=== PATIENT | female | born 1955 | race Caucasian/White ===

== ENCOUNTER 2019-12-24 19:25 | Inpatient (IN) | payer SELFPAY ==
[~2019-12-24] VITALS: Ht 165.1 cm; Wt 68.9 kg
[2019-12-24 19:55] LABS: BASOPHILS ABSOLUTE AUTO 0.09 K/mm3 (0.00-0.23); BASOPHILS PERCENT AUTO 1 % (0-2); EOSINOPHILS PERCENT AUTO 2 % (0-6); Hematocrit 38.7 % (33.0-51.0); Hemoglobin 12.7 g/dL (11.5-16.0); IMMATURE GRAN ABSOLUTE AUTO 0.02 K/mm3 (0.00-0.10); IMMATURE GRAN PERCENT AUTO 0 % (0-1); LYMPHOCYTES ABSOLUTE AUTO 4.08 K/mm3 (0.84-5.20); LYMPHOCYTES PERCENT AUTO 43 % (21-46); MONOCYTES ABSOLUTE AUTO 0.39 K/mm3 (0.16-1.47); MONOCYTES PERCENT AUTO 4 % (4-13); Mean Corpuscular HGB 30.5 pg (26.0-34.0); Mean Corpuscular HGB Conc 32.8 g/dL (31.5-36.5); Mean Corpuscular Volume 93 fL (80-100); Mean Platelet Volume 11.3 fL (9.1-12.4); NEUTROPHILS ABSOLUTE AUTO 4.76 K/mm3 (1.96-9.15); NEUTROPHILS PERCENT AUTO 50 % (41-73); Platelet Count 333 K/mm3 (150-400); RDW Coefficient Variation 12.4 % (11.7-14.2); RDW Standard Deviation 42.7 fL (35.1-46.3); Red Blood Cell Count 4.16 M/mm3 (3.80-5.20); White Blood Cell Count 9.54 K/mm3 (4.00-11.30)
[2019-12-24 20:17] LABS: Alanine Aminotransfer (ALT/SGP 29 U/L (12-78); Albumin, Blood 3.8 g/dL (3.4-5.0); Albumin/Globulin Ratio 0.9 (0.8-1.8); Alk Phos 116 U/L (50-136); Anion Gap 9 mmol/L (6-16); Aspartate Aminotrans (AST/SGOT 30 U/L (12-37); Bilirubin, Total 0.5 mg/dL (0.1-1.0); Blood Urea Nitrogen 13 mg/dL (8-24); CO2, Blood 23 mmol/L (21-32); Calcium, Blood 8.7 mg/dL (8.5-10.1); Chloride, Blood 109 mmol/L (98-108); Creatinine, Blood 1.18 mg/dL (0.40-1.00); Globulin, Blood 4.1 g/dL (2.2-4.0); Glomerular Filtration Rate 49 (60-); Glucose, Blood 116 mg/dL (70-99); Potassium, Blood 3.4 mmol/L (3.5-5.5); Sodium, Blood 141 mmol/L (136-145); Total Protein, Blood 7.9 g/dL (6.4-8.2); Troponin I <0.015 ng/mL (0.000-0.040)
[2019-12-24 23:23] LABS: International Normalized Ratio 0.96; Prothrombin Time Results 10.3 Sec (9.7-11.5)
--- NOTE | 2019-12-25 00:10 | NUR ---
ADMIT NOTE: ADMIT 64 YEAR OLD FEMALE TO ICU 14, PCU STATUS, TO HOSPITALIST DR REST[facility], PER WHEELCHAIR VIA ER. GAIT STEADY TO BED. MONITOR PLACED SHOWING SINUS TACH WITH FREQ PCD'S L EYAL SOUNDS CLEAR/COARSE UPPER LOBES WITH CRACKLES IN THE BASES, RESPIRATIONS REGULAR AND EASY AT REST BECOMES SOB WITH ANY ACTIVITY SPO2 100% ON ROOM AIR. ABDOMEN SOFT WITH BOWEL SOUNDS FOUR QUADS. GAIT STEADY WITH STANDBY ASSIST TO TOILET VOIDS CLEAR URINE.SKIN CLEAR DRY INTACT. NO EDEMA NOTED . CONTINUE TO MONITOR AND REPORT CHANGE IN PATIENT CONDITION. BLOOD CONSENT/REFUSAL COMPLETED ALSO RELEASE OF MEDICAL INFORMATION
[2019-12-25 04:31] LABS: Hematocrit 38.7 % (33.0-51.0); Hemoglobin 12.1 g/dL (11.5-16.0); Mean Corpuscular HGB 29.7 pg (26.0-34.0); Mean Corpuscular HGB Conc 31.3 g/dL (31.5-36.5); Mean Corpuscular Volume 95 fL (80-100); Mean Platelet Volume 11.2 fL (9.1-12.4); Platelet Count 274 K/mm3 (150-400); RDW Coefficient Variation 12.4 % (11.7-14.2); RDW Standard Deviation 43.2 fL (35.1-46.3); Red Blood Cell Count 4.07 M/mm3 (3.80-5.20); White Blood Cell Count 10.48 K/mm3 (4.00-11.30)
[2019-12-25 04:53] LABS: Albumin, Blood 3.6 g/dL (3.4-5.0); Albumin/Globulin Ratio 0.9 (0.8-1.8); Bilirubin, Total 0.9 mg/dL (0.1-1.0); Calcium, Blood 8.8 mg/dL (8.5-10.1); Potassium, Blood 3.6 mmol/L (3.5-5.5); Total Protein, Blood 7.6 g/dL (6.4-8.2)
[2019-12-25 05:03] LABS: CPK Creatine Kinase 49 U/L (26-193); Troponin I <0.015 ng/mL (0.000-0.040)
--- NOTE | 2019-12-25 06:44 | NUR ---
SHIFT SUMMARY: RESTS QUIETLY WHEN UNDISTURBED MONITOR INTACT SHOWING SINUS RHYTHM HEART RATE 70'S LUNG SOUNDS CLEAR COARSE UPPER LOBES WITH DECREASED SOUNDS IN THE BASES. SPO2 99-100'S ON ROOM AIR. ABDOMEN SOFT WITH BOWEL SOUNDS FOUR QUADS.VOIDS CLEAR URINE PER TOILET GAIT STEADY. CONTINUE TO MONITOR AND REPORT CHANGE IN PATIENT CONDITION.
--- NOTE | 2019-12-25 08:00 | NUR ---
CARE ASSUMED REPORT RECEIVED, CARE ASSUMED AT 0700. PT ALERT, ORIENTED. DENIES CHEST PAIN OR SHORTNESS OF BREATH. REPORTS SHE FEELS MUCH BETTER SINCE ADMISSION. VITALS STABLE. PT UP AND DOWN TO BATHROOM IN ROOM FREQUENTLY, STABLE ON FEET AND MANAGES CORDS/LINES WELL. HEPARIN GTT INFUSING. CLARIFIED WITH DR. ROCHA PLAN FOR TODAY. ORDER FOR NPO AND CARDIAC CONSULT. PT UPDATED AND AGREABLE TO PLAN OF CARE. ALSO PER SAP SENIOR DEVELOPER RN, PT WANTS NO LIFE SUPPORT, INCLUDING A VENTILATOR. SPOKE WITH PATIENT REGARDING CODE STATUS, AND PT AGREES THAT FOR A SHORT PERIOD IT WOULD BE OK TO BE ON A VENTILATOR, BUT NOT CHCF. ASKED PATIENT IF HER FAMILY IS AWARE OF HER NEEDS, AND PT SAYS YES. PT AGREEABLE TO WRITTEN INFORMATION REGARDING ADVANCED DIRECTIVE WELL EDUCATION FOR NEW DIAGNOSIS OF CHF.
--- NOTE | 2019-12-25 08:25 | NUR ---
CARDIOLOGY CONSULT DR. ONEIL TO BEDSIDE FOR ASSESSMENT. PLAN FOR ECHO AND CARDIAC STRESS TEST.
--- NOTE | 2019-12-25 09:57 | NUR ---
Echocardiogram using 0.50ml of Definity contrast performed.
--- NOTE | 2019-12-25 11:55 | NUR ---
CARDIAC CATH PER DR. ONEIL, PT NEEDS LEFT AND RIGHT CARDIAC CATH AND HE WILL BE BY TO DISCUSS WITH PATIENT WHEN HE HAS TIME. ORDER TO STOP HEPARIN GTT, CONTINUE WITH NPO STATUS OTHER THAN ORDERED MEDS. CONFIRMED OK TO GIVE METOPROLOL, PLAVIX AND LASIX PER ORDERS.
[2019-12-25 13:43] LABS: CPK Creatine Kinase 57 U/L (26-193); Troponin I <0.015 ng/mL (0.000-0.040)
--- NOTE | 2019-12-25 18:32 | NUR ---
Per admit trigger, I met with Mrs. Rabago who was alone in room. I was tasked to offer information and education regarding advanced care planning. She was a interested in completing an Advanced Directive but wanted to do it with family. She is active in the [employer] [place] community and feels spiritual supported by friends and family. I offered to help with ACP if needed. She tells me that she has new dx of CHF and is worried. I recommended palliative care consult to RN. I will remain available.
--- NOTE | 2019-12-25 19:00 | NUR ---
ASSUMED CARE NOTE: ASSUMED CARE OF PT @ 1900, RECEVIED REPORT FROM AMARA MORGAN. PT IS ALERT AND ORIENTEDX4. PT ON RA WITH SPO2 ABOVE 90%, PT DENIES ANY SOB/PAIN AT THIS TIME. PT IS IN SINUS RHYTHM WITH PVC'S, HR IN THE 70'S, PT DENIES ANY CP. ACTIVE BOWEL TONES HEARD IN ALL FOUR QUADRANTS. VERIFIED HEPARIN ORDER/DRIP WITH AMARA MORGAN. WILL CONTINUE TO MONITOR PT T/O SHIFT.
--- NOTE | 2019-12-25 19:04 | NUR ---
SUMMARY VITALS STABLE THROUGOUT SHIFT. PT HAS DENIED CHEST PAIN, SOB. UP IN ROOM INDEPENDENTLY. NOTIFIED THIS AFTERNOON BY DR. ONEIL THAT PT TO GO TO [facility] TOMORROW MORNING AT 0800. PT OK TO EAT, NPO AFTER MIDNIGHT. HEPARIN RESTARTED, STOP AT MIDNIGHT. ORDERS PLACED. PT'S BIGGEST CONCERN IS EDUCATION REGARDING HER DIAGNOSIS. PT HAS BEEN PROVIDED WITH VERBAL AND WRITTEN INFORMATION THROUGHOUT THE DAY AND EXPRESSES GRATITUDE. PT HAS CONCERNS WITH NEW DIAGNOSIS AND BEING HER WITH DEMENTIA'S PRIMARY SUPPORT PERSON. PALLIATIVE CARE AND INSULATION MANAGER CONSULTS PLACED. BEDSIDE REPORT GIVEN TO EDDIE CARL.
--- NOTE | 2019-12-26 01:00 | NUR ---
SHARON MONTOYA'osmar @ 0000, NOTIFIED PHARMACY
[2019-12-26 04:14] LABS: BASOPHILS ABSOLUTE AUTO 0.04 K/mm3 (0.00-0.23); BASOPHILS PERCENT AUTO 1 % (0-2); EOSINOPHILS ABSOLUTE AUTO 0.17 K/mm3 (0.00-0.68); EOSINOPHILS PERCENT AUTO 2 % (0-6); Hematocrit 35.8 % (33.0-51.0); Hemoglobin 11.8 g/dL (11.5-16.0); IMMATURE GRAN ABSOLUTE AUTO 0.02 K/mm3 (0.00-0.10); IMMATURE GRAN PERCENT AUTO 0 % (0-1); LYMPHOCYTES ABSOLUTE AUTO 1.85 K/mm3 (0.84-5.20); LYMPHOCYTES PERCENT AUTO 26 % (21-46); MONOCYTES ABSOLUTE AUTO 0.42 K/mm3 (0.16-1.47); MONOCYTES PERCENT AUTO 6 % (4-13); Mean Corpuscular HGB 30.4 pg (26.0-34.0); Mean Platelet Volume 11.1 fL (9.1-12.4); NEUTROPHILS ABSOLUTE AUTO 4.71 K/mm3 (1.96-9.15); NEUTROPHILS PERCENT AUTO 65 % (41-73); Platelet Count 277 K/mm3 (150-400); RDW Coefficient Variation 12.6 % (11.7-14.2); RDW Standard Deviation 42.5 fL (35.1-46.3); Red Blood Cell Count 3.88 M/mm3 (3.80-5.20); White Blood Cell Count 7.21 K/mm3 (4.00-11.30)
[2019-12-26 04:15] LABS: Mean Corpuscular Volume 92 fL (80-100)
[2019-12-26 04:29] LABS: Bun/Creatinine Ratio 19.1 (12.0-20.0); Calcium, Blood 8.5 mg/dL (8.5-10.1); Creatinine, Blood 1.41 mg/dL (0.40-1.00); Potassium, Blood 3.6 mmol/L (3.5-5.5)
--- NOTE | 2019-12-26 06:18 | NUR ---
SHIFT SUMMARY: PT REMAINS ALERT AND ORIENTEDX4, CONTINUES TO BE ON RA, SPO2 ABOVE 90%. PT HAS BEEN SINUS RHYTHM WITH PVC'S , HR BETWEEN 60-70 BPM. PT WAS IN AN ACCELERATED JUCTIONAL RHYTHM FOR A FEW MOMENTS THIS SHIFT, SEE CHART. PT CONTINUED TO DENY CHEST PAIN DURING SHIFT. PT VITALS STABLE. HEPARIN TURNED OFF AT MIDNIGHT, PT REMAINED NPO. WILL CONTINUE TO MONITOR PT UNTIL REPORT IS GIVEN TO NEXT SHIFT.
--- NOTE | 2019-12-26 13:59 | NUR ---
ICU DAYSHIFT SUMMARY (PCU STATUS PT) PATIENT REMAINED ALERT AND ORIETED X4 T/O SHIFT. INDEPENDENT IN ROOM. NO BLOOD PRESSURES TO LEFT ARM DUE TO LYMPHECTOMY. POWER GLIDE IN RIGHT UPPER ARM WNL. PATIENT HAS STRONG STEADY GAIT. ANGIO GRAM TODAY FROM APPROX [id number] - NO STENTS. EF 20% - TITRATING LASIXS AND CARDIAC MEDICATIONS. NO ACUTE DISTRESS NOTED AND VSS. HR NSR IN THE 70-80S AND PATIENT ON ROOM AIR. CALL LIGHT W/I REACH. AMBULATING PATIENT TO PCU ROOM 7 - REPORTED TO CHIEF EXECUTIVE.
--- NOTE | 2019-12-26 14:46 | NUR ---
PT ARRIVED FROM ICU AT 1415 AND WAS AOX4 AND COOPERATIVE OF CARE. PT HAS BOARD IN PLACE TO KEEP WRIST FROM BENDING ON RIGHT WRIST. NO SWELLING OR BLEEDING NOTED FOR INSERTION SITE OF R WRIST. PT INDEPENDENT IN ROOM, WILL CONTINUE TO MONITOR.
--- NOTE | 2019-12-26 16:48 | NUR ---
PT IS AOX4 AND COOPERATIVE OF CARE NO DISTRESS NOTED AT THIS TIME. PT INDEPENDENT IN ROOM. PT CALLS APPROPRITAELY, WILL CONTINUE TO MONITOR.
[2019-12-27 04:23] LABS: Albumin, Blood 3.5 g/dL (3.4-5.0); Anion Gap 9 mmol/L (6-16); Blood Urea Nitrogen 35 mg/dL (8-24); CO2, Blood 27 mmol/L (21-32); Calcium, Blood 8.7 mg/dL (8.5-10.1); Chloride, Blood 103 mmol/L (98-108); Creatinine, Blood 1.13 mg/dL (0.40-1.00); Glomerular Filtration Rate 52 (60-); Glucose, Blood 107 mg/dL (70-99); Phosphorus, Blood 4.9 mg/dL (2.5-4.9); Potassium, Blood 3.4 mmol/L (3.5-5.5); Sodium, Blood 139 mmol/L (136-145)
--- NOTE | 2019-12-27 05:22 | NUR ---
SHIFT SUMMARY PT SLEEPING COMFORTABLY IN ROOM AT THIS TIME. NO ACUTE CHANGES IN STATSU T/O NIGHT. PT SLEPT WELL AND DENIED NEEDS. DENIED ANY CP OR SOB. PT HAS BEEN INDEPENDENT IN ROOM T/O NIGHT. RESP EVEN UNLBAORED ON RA W/ SATS >92%. PT HAS REMAINED NSR ON TELE T/O NIGHT. ANGIO SITE ON R RADIAL IS WNL, AND ARMBOARD IN PLACE, NO HEMATOMAS NOTED. PT DENIED OTHER NEEDS. CALL LIGHT IN REACH. PT REPORTS DOES NOT WANT TO BE WOKEN FOR BEDSIDE REPORT.
[2019-12-27] MEDS ORDERED: ASPI81CH PO (12:15)
[2019-12-27] MEDS ORDERED: ATOR20 PO (12:15)
[2019-12-27] MEDS ORDERED: FURO40 PO (12:16)
[2019-12-27] MEDS ORDERED: LISI5 PO (12:17)
[2019-12-27] MEDS ORDERED: METO50ER PO (12:18)
--- NOTE | 2019-12-27 14:50 | NUR ---
DISCHARGE SUMMARY PT REMAINED AAOX4 THROUGHOUT SHIFT. VSS; SR 70-80S ON TELE MONITOR. PT DENIED ANY C/O CHEST PAIN/PRESSURE OR SOB. PT S/P ANGIO; RIGHT RADIAL SITE WNL; SMALL ECCHYMOSIS NOTED AROUND SITE, WHICH WAS PRESENT UPON SHIFT CHANGE. DISCHARGE EDUCATION WAS COMPLETED W/ PT, PT'S , & PT'S GRANDCHILDREN. DISCUSSED MED REC, FOLLOW UP INSTRUCTIONS, ACTIVITY & DIET RESTRICTIONS REGARDING POST ANGIO & CHF. EMPHASIZED IMPORTANCE OF MONITORING RADIAL SITE FOR S/S OF COMPLICATIONS; PT ABLE TO TEACH BACK SOME S/S INCLUDING INFECTION & BLEEDING. ALSO EMPHASIZED IMPORTANCE OF CHF MANAGEMENT, W/ ADHERENCE TO MEDS, DIET, & WEIGHT MONITORING. PT VERBALIZED UNDERSTANDING AT THIS TIME. HANDOUTS PROVIDED ON RADIAL ANGIO CARE, CHF, & MED SIDE EFFECTS. PT TO PICKUP NEW PRESCRIPTIONS AT HER HOME PHARMACY. RIGHT UPPER ARM POWERGLIDE REMOVED. TELE REMOVED. ALL PAPERWORK & BELONGINGS GIVEN TO PT. PT DISCHARED HOME W/ ; TRANSPORTED OFF UNIT VIA WHEELCHAIR IN STABLE CONDITION.
== END 2019-12-27 13:46 | disposition home or self-care (01) | DRG 286 ==
LOC: ER 19:25 → ICUW 22:02 → PCU 12-26 14:10
PROVIDERS: Family Medicine; Internal Medicine; Physician Assistant; ADMIT Internal Medicine
PROC: 4A023N7 Measurement of Cardiac Sampling and Pressure, Left Heart, Percutaneous Approach (ICD-10-PCS; principal; 2019-12-26)
PROC: B2111ZZ Fluoroscopy of Multiple Coronary Arteries using Low Osmolar Contrast (ICD-10-PCS; 2019-12-26)
DX: I51.81 Takotsubo syndrome (principal); I50.21 Acute systolic (congestive) heart failure; N17.9 Acute kidney failure, unspecified; I25.119 Atherosclerotic heart disease of native coronary artery with unspecified angina pectoris; E87.6 Hypokalemia; D64.9 Anemia, unspecified; N18.9 Chronic kidney disease, unspecified; I44.7 Left bundle-branch block, unspecified; I08.1 Rheumatic disorders of both mitral and tricuspid valves; Z85.3 Personal history of malignant neoplasm of breast
CPT/HCPCS: 36415; 71046; 76937; 80048; 80053; 80069; 82550; 83880; 84484; 85025; 85027; 85049; 85379; 85610; 85730; 93005; 93010; 93458; 99152; 99153; 99285-25; A9270-GY; C1751; C1769; C1894; C8929; J1644; J1940; J2250; J2405; J3010; J3480; J7030; J7050; Q9957; Q9967

== ENCOUNTER 2022-09-24 06:17 | Emergency (ER) | payer SELFPAY ==
[~2022-09-24] VITALS: Ht 162.6 cm; Wt 63.5 kg
[~2022-09-24 06:17] MED LIST: ASPI81CH PO; ATOR20 PO; FURO40 PO; LISI5 PO; METO50ER PO
[2022-09-24 07:14] LABS: BASOPHILS ABSOLUTE AUTO 0.05 K/mm3 (0.00-0.23); BASOPHILS PERCENT AUTO 1 % (0-2); EOSINOPHILS ABSOLUTE AUTO 0.11 K/mm3 (0.00-0.68); EOSINOPHILS PERCENT AUTO 2 % (0-6); Hematocrit 34.9 % (33.0-51.0); Hemoglobin 11.8 g/dL (11.5-16.0); IMMATURE GRAN ABSOLUTE AUTO 0.02 K/mm3 (0.00-0.10); IMMATURE GRAN PERCENT AUTO 0 % (0-1); LYMPHOCYTES ABSOLUTE AUTO 2.13 K/mm3 (0.84-5.20); LYMPHOCYTES PERCENT AUTO 30 % (21-46); MONOCYTES ABSOLUTE AUTO 0.38 K/mm3 (0.16-1.47); MONOCYTES PERCENT AUTO 5 % (4-13); Mean Corpuscular HGB 30.3 pg (26.0-34.0); Mean Corpuscular HGB Conc 33.8 g/dL (31.5-36.5); Mean Corpuscular Volume 90 fL (80-100); NEUTROPHILS ABSOLUTE AUTO 4.36 K/mm3 (1.96-9.15); NEUTROPHILS PERCENT AUTO 62 % (41-73); Platelet Count 336 K/mm3 (150-400); RDW Coefficient Variation 14.3 % (11.7-14.2); RDW Standard Deviation 46.5 fL (35.1-46.3); White Blood Cell Count 7.05 K/mm3 (4.00-11.30)
[2022-09-24 07:53] LABS: Albumin, Blood 3.5 g/dL (3.4-5.0); Albumin/Globulin Ratio 0.9 (0.8-1.8); Bilirubin, Total 0.8 mg/dL (0.1-1.0); Bun/Creatinine Ratio 15.2 (12.0-20.0); Creatinine, Blood 1.05 mg/dL (0.40-1.00); Globulin, Blood 3.9 g/dL (2.2-4.0); Potassium, Blood 3.6 mmol/L (3.5-5.5); Total Protein, Blood 7.4 g/dL (6.4-8.2)
[2022-09-24 10:00] LABS: Influenza A, PCR NEGATIVE (NEGATIVE); Influenza B, PCR NEGATIVE (NEGATIVE); Resp Syncytial Virus, PCR NEGATIVE (NEGATIVE); SARS-Cov-2 (COVID-19) PCR, MMC NEGATIVE (NEGATIVE)
[2022-09-24] MEDS ORDERED: LASIX20 M2 PO (10:29)
[2022-09-24] MEDS ORDERED: POTCHL20ER PO (10:29)
[2022-09-24] MEDS ORDERED: METO50ER PO (10:29)
[2022-09-24] MEDS ORDERED: Prinivil10 MG PO (10:29)
== END 2022-09-24 10:51 | disposition home or self-care (01) ==
LOC: ER 06:17
PROVIDERS: Emergency Medicine
DX: I50.9 Heart failure, unspecified (principal); Z87.891 Personal history of nicotine dependence; Z20.822 Contact with and (suspected) exposure to COVID-19
CPT/HCPCS: 0241U; 36415; 71046; 80053; 83880; 84484; 85025; J1940

== ENCOUNTER 2023-04-20 11:05 | Inpatient (IN) | payer MEDICAID ==
[~2023-04-20] VITALS: Ht 165.1 cm; Wt 66.1 kg
[~2023-04-20 11:05] MED LIST changes: +LASIX20 M2 PO; +POTCHL20ER PO; +Prinivil10 MG PO
[2023-04-20 11:53] LABS: BASOPHILS ABSOLUTE AUTO 0.05 K/mm3 (0.00-0.23); BASOPHILS PERCENT AUTO 1 % (0-2); EOSINOPHILS ABSOLUTE AUTO 0.11 K/mm3 (0.00-0.68); EOSINOPHILS PERCENT AUTO 1 % (0-6); Hematocrit 35.9 % (33.0-51.0); Hemoglobin 12.2 g/dL (11.5-16.0); IMMATURE GRAN ABSOLUTE AUTO 0.03 K/mm3 (0.00-0.10); IMMATURE GRAN PERCENT AUTO 0 % (0-1); LYMPHOCYTES ABSOLUTE AUTO 2.26 K/mm3 (0.84-5.20); LYMPHOCYTES PERCENT AUTO 23 % (21-46); MONOCYTES ABSOLUTE AUTO 0.39 K/mm3 (0.16-1.47); MONOCYTES PERCENT AUTO 4 % (4-13); Mean Corpuscular HGB 30.5 pg (26.0-34.0); Mean Corpuscular Volume 90 fL (80-100); NEUTROPHILS ABSOLUTE AUTO 6.93 K/mm3 (1.96-9.15); NEUTROPHILS PERCENT AUTO 71 % (41-73); Platelet Count 456 K/mm3 (150-400); RDW Coefficient Variation 11.9 % (11.7-14.2); White Blood Cell Count 9.77 K/mm3 (4.00-11.30)
[2023-04-20 12:15] LABS: Albumin, Blood 3.5 g/dL (3.4-5.0); Albumin/Globulin Ratio 0.7 (0.8-1.8); Bilirubin, Total 0.4 mg/dL (0.1-1.0); Calcium, Blood 9.5 mg/dL (8.5-10.1); Creatinine, Blood 1.31 mg/dL (0.40-1.00); Globulin, Blood 4.7 g/dL (2.2-4.0); Potassium, Blood 3.1 mmol/L (3.5-5.5); Total Protein, Blood 8.2 g/dL (6.4-8.2)
[2023-04-20] MEDS ORDERED: ASPI81CH PO (16:32)
[2023-04-20] MEDS ORDERED: FURO20 PO (16:33)
[2023-04-20] MEDS ORDERED: Zestril30 MG PO (16:34)
[2023-04-20] MEDS ORDERED: METO50ER PO (16:35)
[2023-04-20] MEDS ORDERED: KLOR-CON 1010 ME1 PO (16:36)
[2023-04-20 16:40] VITALS: BP 121/63
[2023-04-20 17:45] LABS: Anti-Xa UFH, PHA Monitoring <0.10 IU/mL; International Normalized Ratio 1.01; Prothrombin Time Results 10.6 Sec (9.7-11.5)
[2023-04-20 18:00] VITALS: BP 128/72
--- NOTE | 2023-04-20 18:12 | NUR ---
SUMMARY Assumed care of PCU status patient on arrival to ICU 15 from emergency department at 1630. Admitted for elevated troponin. Noted that repeat troponin was further elevated, Dr Arora aware and provider presented to bedside to update patient that he would be consulting cardiology. Pt to remain NPO until cardiology provides additional plan of care. Heparin drip started and pt given loading dose ASA and plavix. End of shift assessment is as follows: Neuro/Vasc/Pain: A&O x 4. Answers questions, follows commands, verbalizes needs. Pleasant and cooperative with care. Reports pain to top of right foot; states the pain started 1.5 weeks ago and was accompanied with swelling so severe "I thought my skin was going to split open". Pt chooses not to bear any weight on R foot with transfers. On assessment, R foot is hot to the touch, L foot is cold. Doppler pulses are stronger on R foot than L foot. Capillary refill < 3 seconds BLE. Venous duplex pending. Resp: SpO2 90% or greater room air. Lungs clear t/o. Cardiac: SR-ST per monitor with approx 10 PVCs per minute. Hypokalemic, PO potassium given. No edema. Pt denies chest pain. GI: Pt reports intermittent nausea; states she vomited this morning. : Voids into BSC Skin: Fragile but intact Family: Pt states she lives with her . She states he has dementia but is able to do his own ADLs. States her son lives "two doors down". Pt has been updating family today.
--- NOTE | 2023-04-20 18:29 | NUR ---
IGNITION RISK Pt states she is not a smoker and denies having any ignition sources. States that she had a coil connector that she kept in her purse "for about five years for emergencies" but had the nurse in the ER dispose of it. Educated on fire prevention. Pt verbalizes understanding.
[2023-04-20 19:00] VITALS: BP 122/96
[2023-04-20 20:00] VITALS: BP 116/61
--- NOTE | 2023-04-20 20:00 | NUR ---
ASSUMED CARE OF PT AT 1900. REPORT RECEIVED AT BEDSIDE. PT PRESENTS IN BED. ALERT AND ORIENTED. PLEASANT AND COOPERATIVE WITH CARE AND ASSESSMENT. DENIES CHEST PAIN OR PRESSURE. HEPARIN DRIP RATE AND DOSE WEIGHT VERIFIED WITH OFFGOING RN. ASSESSMENT OF RIGHT LOWER EXTREMITY VERSUS LEFT CONSISTANT WITH PREVIOUS ASSESSMENT. WILL REVIEW CHART AND PLAN OF CARE FOR THIS PT.
[2023-04-20 22:00] VITALS: BP 100/58
[2023-04-21] VITALS (8 sets, daily range): BP systolic 99–136; BP diastolic 41–101
[2023-04-21 04:36] LABS: BASOPHILS ABSOLUTE AUTO 0.04 K/mm3 (0.00-0.23); BASOPHILS PERCENT AUTO 1 % (0-2); EOSINOPHILS ABSOLUTE AUTO 0.15 K/mm3 (0.00-0.68); EOSINOPHILS PERCENT AUTO 2 % (0-6); Hematocrit 30.7 % (33.0-51.0); Hemoglobin 10.4 g/dL (11.5-16.0); IMMATURE GRAN ABSOLUTE AUTO 0.02 K/mm3 (0.00-0.10); IMMATURE GRAN PERCENT AUTO 0 % (0-1); LYMPHOCYTES ABSOLUTE AUTO 2.94 K/mm3 (0.84-5.20); LYMPHOCYTES PERCENT AUTO 38 % (21-46); MONOCYTES PERCENT AUTO 8 % (4-13); Mean Corpuscular HGB 30.9 pg (26.0-34.0); Mean Corpuscular HGB Conc 33.9 g/dL (31.5-36.5); Mean Corpuscular Volume 91 fL (80-100); Mean Platelet Volume 9.9 fL (9.1-12.4); NEUTROPHILS ABSOLUTE AUTO 3.96 K/mm3 (1.96-9.15); NEUTROPHILS PERCENT AUTO 51 % (41-73); Platelet Count 375 K/mm3 (150-400); RDW Coefficient Variation 11.9 % (11.7-14.2); Red Blood Cell Count 3.37 M/mm3 (3.80-5.20); White Blood Cell Count 7.71 K/mm3 (4.00-11.30)
--- NOTE | 2023-04-21 05:13 | NUR ---
PT HAS BEEN ABLE TO REST THIS NIGHT WITHOUT COMPLAINTS OF CHEST PAIN OR PRESSURE. HAS BEEN UP TO BSC WITH STANDBY ASSIST AND TO HELP WITH LINES. PT VOIDS QUANTITY SUFFICIENT. NO COMPLAINTS VOICED BY PT. PT TO BE TRANSFERRED TO PCU ROOM 12 WHEN RN AND ROOM AVAILABLE.
--- NOTE | 2023-04-21 06:10 | NUR ---
REPORT GIVEN TO EDDIE LIMON. PT LEAVES TO ROOM PCU 12.
[2023-04-21 06:14] LABS: Alanine Aminotransfer (ALT/SGP 22 U/L (12-78); Albumin, Blood 3.1 g/dL (3.4-5.0); Albumin/Globulin Ratio 0.9 (0.8-1.8); Alk Phos 133 U/L (50-136); Anion Gap 7 mmol/L (6-16); Aspartate Aminotrans (AST/SGOT 28 U/L (12-37); Bilirubin, Total 0.3 mg/dL (0.1-1.0); Blood Urea Nitrogen 26 mg/dL (8-24); Bun/Creatinine Ratio 18.8 (12.0-20.0); CHOL/HDL RATIO 2.6; CO2, Blood 24 mmol/L (21-32); Chloride, Blood 109 mmol/L (98-108); Cholesterol 129 mg/dL (50-200); Creatinine, Blood 1.38 mg/dL (0.40-1.00); Globulin, Blood 3.6 g/dL (2.2-4.0); Glomerular Filtration Rate 42 (60-); Glucose, Blood 109 mg/dL (70-99); HDL Cholesterol 50 mg/dL (>39); LDL/HDL RATIO 1.1; Low Density Lipoprotein Chol 54 mg/dL (0-110); Sodium, Blood 140 mmol/L (136-145); Total Protein, Blood 6.7 g/dL (6.4-8.2); Triglycerides 126 mg/dL (30-160); Very Low Density Lipoprot Chol 25 mg/dL (6-32)
--- NOTE | 2023-04-21 14:49 | NUR ---
LEXISCAN 0.4 MG IV GIVEN FOR STRESS TEST ORDERED.
--- NOTE | 2023-04-21 19:22 | NUR ---
SHIFT SUMMARY ALERT, ORIENTED, COOPERATIVE. DENIES CHEST PAIN AND SHORTNESS OF BREATH THROUGHOUT SHIFT. ROOM AIR. SBA TO BSC, RIGHT FOOT IS SWOLLEN AND PAINFUL. DVT NEG BILAT LE. PATIENT DENIES INJURY. HEPARIN GTT RUNNING, TITRATED PER PHARMACY. DR ARMSTRONG CONSULTED. NPO DURING AM, WENT FOR 1ST PART OF CARDIAC STRESS TEST THIS AFTERNOON. TOLERATED WELL. TOLERATED CARDIAC DIET AND LIQUIDS DURING AFTERNOON AND EVENING. VOIDING WELL. 24 HOUR URINE COLLECTION STARTED THIS AFTERNOON. ECHO DONE, EF 25%. PLAN FOR 2ND PART OF STRESS TEST IN AM. REPORT GIVEN TO HR CLERK RN.
--- NOTE | 2023-04-21 19:56 | NUR ---
ASSUMPTION OF CARE: PATIETN WITH 1ST PART OF STRESS TEST PREFORMED PENDING SECOND IN THE AM ECHO RESULTS IN. PATIENT IS ALERT AND ORIENTED X4 PLEASANT COOPERATIVE WITH CARE. HEP Gtt INFUSING NEW BAG, PATIENT ALSO WITH TKO INFUSING WILL CONTINUE TO MONITOR. PATIENT DENIES CHEST PAIN PRESSURE OR SOB. VSS ON RA. DENIES GI/ ISSUES. NO CONCERNS FROM THIS RN WILL MAKE NPO AT 0400 INCASE OF INTERVENTIONS NEEDED. PATIENT APPLICABLE TO PLAN. TELE IN PLACE. POWERGLIDE FLUSHES WELL
[2023-04-22 03:45] VITALS: BP 102/48
--- NOTE | 2023-04-22 03:49 | NUR ---
END OF SHIFT: PATIENT EDUCATED, ON FIRE SAFETY. PATIENT VERBALIZED UNDERSTANDING. STILL DENYING CHEST PAIN PRESSURE OR SOB. NO CHANGES FROM ASSUMPTION OF CARE NO CHANGE TO RATE OF HEP GTT PATIENT WITH ONE VOID THROUGH THE NIGHT. NO CONCERNS FOR RETENTION, WILL CONTINUE TO MONITOR UNTIL SHIFT CHANGE.
[2023-04-22 04:45] LABS: BASOPHILS ABSOLUTE AUTO 0.05 K/mm3 (0.00-0.23); BASOPHILS PERCENT AUTO 1 % (0-2); EOSINOPHILS ABSOLUTE AUTO 0.13 K/mm3 (0.00-0.68); EOSINOPHILS PERCENT AUTO 2 % (0-6); Hematocrit 30.7 % (33.0-51.0); Hemoglobin 10.5 g/dL (11.5-16.0); IMMATURE GRAN ABSOLUTE AUTO 0.01 K/mm3 (0.00-0.10); IMMATURE GRAN PERCENT AUTO 0 % (0-1); LYMPHOCYTES ABSOLUTE AUTO 2.98 K/mm3 (0.84-5.20); LYMPHOCYTES PERCENT AUTO 41 % (21-46); MONOCYTES ABSOLUTE AUTO 0.47 K/mm3 (0.16-1.47); MONOCYTES PERCENT AUTO 7 % (4-13); Mean Corpuscular HGB 31.3 pg (26.0-34.0); Mean Corpuscular HGB Conc 34.2 g/dL (31.5-36.5); Mean Corpuscular Volume 91 fL (80-100); Mean Platelet Volume 10.2 fL (9.1-12.4); NEUTROPHILS ABSOLUTE AUTO 3.56 K/mm3 (1.96-9.15); NEUTROPHILS PERCENT AUTO 50 % (41-73); Platelet Count 404 K/mm3 (150-400); RDW Coefficient Variation 12.1 % (11.7-14.2); RDW Standard Deviation 40.3 fL (35.1-46.3); Red Blood Cell Count 3.36 M/mm3 (3.80-5.20)
[2023-04-22 05:14] LABS: Albumin/Globulin Ratio 0.8 (0.8-1.8); Bilirubin, Total 0.5 mg/dL (0.1-1.0); Bun/Creatinine Ratio 23.1 (12.0-20.0); Creatinine, Blood 1.34 mg/dL (0.40-1.00); Globulin, Blood 3.8 g/dL (2.2-4.0); Potassium, Blood 4.2 mmol/L (3.5-5.5); Total Protein, Blood 6.8 g/dL (6.4-8.2)
[2023-04-22 07:01] VITALS: BP 95/47
--- NOTE | 2023-04-22 10:34 | NUR ---
Patient was injected and ate breakfast. She is back from stress test now, Dr. Campos, and Dr avitia have been in again to see her and spoke with them for possible xray of R foot. at bedside. Her linen has been changed.
[2023-04-22 11:45] VITALS: BP 112/48
--- NOTE | 2023-04-22 13:30 | NUR ---
Patient remains alert and oriented and is abnle to communicate her needs. She is independent in room but still calls before getting up. Her is at bedside and has been assisting her. She has been resting since back from stress test. She currently has family and friends in room. She has denied any needs. She had imaging of here right foot. She remains on RA and sats >90%.. She tolerated luch without difficulty and ate 100%. Plan is to get her started on Eliquis.
[2023-04-22] MEDS ORDERED: POTA10T PO (15:35)
[2023-04-22] MEDS ORDERED: ATOR40TA PO (15:35)
[2023-04-22] MEDS ORDERED: ELIQUIS5 M2 PO (15:35)
--- NOTE | 2023-04-22 16:07 | NUR ---
Dr Arora by and saw patient and she is being discharged. We were able to get 30 day supply and discount cards to patient before leaving. She received written discharge instructions and reviewed meds and appt. She returned understanding of information. Pulled powerGlide and IV intact and sites WNL's. Patient was taken out in wheelchair and son took them home POV.
[2023-04-24 00:08] LABS: HEMOGLOBIN A1C 5.3 % (4.8-5.6)
[2023-04-26 08:13] LABS: METANEPHRINE, UR 61 ug/L (Undefined)
== END 2023-04-22 16:02 | disposition home or self-care (01) | DRG 281 ==
LOC: ER 11:05 → ICUE 11:06 → PCU 11:06 → ICUE 16:22 → PCU 04-21 06:11
PROVIDERS: Family Medicine; Physician Assistant; ADMIT Hospitalist
DX: I21.4 Non-ST elevation (NSTEMI) myocardial infarction (principal); I13.0 Hypertensive heart and chronic kidney disease with heart failure and stage 1 through stage 4 chronic kidney disease, or unspecified chronic kidney disease; I42.8 Other cardiomyopathies; I50.22 Chronic systolic (congestive) heart failure; I48.92 Unspecified atrial flutter; I43 Cardiomyopathy in diseases classified elsewhere; N18.9 Chronic kidney disease, unspecified; M54.2 Cervicalgia; I44.7 Left bundle-branch block, unspecified; I25.118 Atherosclerotic heart disease of native coronary artery with other forms of angina pectoris; I08.1 Rheumatic disorders of both mitral and tricuspid valves; R79.1 Abnormal coagulation profile; R74.8 Abnormal levels of other serum enzymes; E87.6 Hypokalemia; D75.839 Thrombocytosis, unspecified; Z79.82 Long term (current) use of aspirin; Z79.02 Long term (current) use of antithrombotics/antiplatelets; Z79.01 Long term (current) use of anticoagulants; Z79.811 Long term (current) use of aromatase inhibitors; Z79.899 Other long term (current) drug therapy; Z87.19 Personal history of other diseases of the digestive system; Z85.3 Personal history of malignant neoplasm of breast; Z90.12 Acquired absence of left breast and nipple; Z98.890 Other specified postprocedural states; Z92.21 Personal history of antineoplastic chemotherapy
CPT/HCPCS: 36415; 71046; 71260; 73610; 73630; 78452; 80053; 80061; 81050; 83036; 83735; 83835; 83880; 84443; 84484; 85025; 85379; 85520; 85610; 85730; 93005; 93010; 93017; 93970; 96365; 96366; 96375; 99285-25; A9270; A9500; C1751; C8929; G0378; J1644; J2785; J3475; J7030; J7050; Q9957; Q9967

== ENCOUNTER 2024-09-07 08:33 | Emergency (ER) | payer MEDICARE ==
[~2024-09-07] VITALS: Ht 162.6 cm; Wt 66.8 kg
[~2024-09-07 08:33] MED LIST changes: +ATOR40TA PO; +ELIQUIS5 M2 PO; +FURO20 PO; +KLOR-CON 1010 ME1 PO; +POTA10T PO; +Zestril30 MG PO
[2024-09-07 09:32] LABS: BASOPHILS ABSOLUTE AUTO 0.08 K/mm3 (0.00-0.23); BASOPHILS PERCENT AUTO 1 % (0-2); EOSINOPHILS ABSOLUTE AUTO 0.14 K/mm3 (0.00-0.68); EOSINOPHILS PERCENT AUTO 2 % (0-6); Hematocrit 35.5 % (33.0-51.0); Hemoglobin 11.2 g/dL (11.5-16.0); IMMATURE GRAN ABSOLUTE AUTO 0.03 K/mm3 (0.00-0.10); IMMATURE GRAN PERCENT AUTO 0 % (0-1); LYMPHOCYTES ABSOLUTE AUTO 1.97 K/mm3 (0.84-5.20); LYMPHOCYTES PERCENT AUTO 29 % (21-46); MONOCYTES ABSOLUTE AUTO 0.46 K/mm3 (0.16-1.47); MONOCYTES PERCENT AUTO 7 % (4-13); Mean Corpuscular HGB 29.7 pg (26.0-34.0); Mean Corpuscular HGB Conc 31.5 g/dL (31.5-36.5); Mean Corpuscular Volume 94 fL (80-100); Mean Platelet Volume 11.2 fL (9.1-12.4); NEUTROPHILS ABSOLUTE AUTO 4.17 K/mm3 (1.96-9.15); NEUTROPHILS PERCENT AUTO 61 % (41-73); Platelet Count 336 K/mm3 (150-400); RDW Coefficient Variation 15.6 % (11.7-14.2); RDW Standard Deviation 53.9 fL (35.1-46.3); Red Blood Cell Count 3.77 M/mm3 (3.80-5.20); White Blood Cell Count 6.85 K/mm3 (4.00-11.30)
[2024-09-07 09:43] LABS: Albumin, Blood 3.3 g/dL (3.4-5.0); Albumin/Globulin Ratio 0.9 (0.8-1.8); Bun/Creatinine Ratio 20.8 (12.0-20.0); Calcium, Blood 9.3 mg/dL (8.5-10.1); Creatinine, Blood 1.3 mg/dL (0.40-1.00); Globulin, Blood 3.5 g/dL (2.2-4.0); Potassium, Blood 4.9 mmol/L (3.5-5.5); Total Protein, Blood 6.8 g/dL (6.4-8.2)
[2024-09-07 10:11] VITALS: BP 119/75
[2024-09-07] MEDS ORDERED: Metoprolol Succinate 50 MG TABCR PO ONE (10:45)
[2024-09-07] MEDS ORDERED: Furosemide 10 MG / ML 2ML Vial IV ONE (10:45)
[2024-09-07] MEDS ORDERED: METO50ER PO ×2 (12:46→12:48)
[2024-09-07] MEDS ORDERED: FURO20 PO ×2 (12:46→12:48)
[2024-09-07] MEDS ORDERED: K-Dur10 MEQ PO ×2 (12:46→12:48)
== END 2024-09-07 13:07 | disposition home or self-care (01) ==
LOC: ER 08:33
PROVIDERS: Student in an Organized Health Care Education/Training Program
DX: I50.9 Heart failure, unspecified (principal); Z87.891 Personal history of nicotine dependence; Z79.82 Long term (current) use of aspirin; Z79.899 Other long term (current) drug therapy
CPT/HCPCS: 71046; 71260; 80053; 83880; 84484; 85025; 85379; 93005; 93010; 96374-59; 99285-25; A9270; J1940; Q9967

== ENCOUNTER → 2025-08-25 | Outpatient (CLI) | payer MEDICARE ==
[~2025-08-25] MED LIST changes: +K-Dur10 MEQ PO
[2025-08-25 09:57] LABS: Anion Gap 10.0 mmol/L (3-11); Blood Urea Nitrogen 62.0 mg/dL (8-24); CO2, Blood 24.0 mmol/L (21-32); Calcium, Blood 8.9 mg/dL (8.5-10.1); Chloride, Blood 104.0 mmol/L (98-108); Creatinine, Blood 1.51 mg/dL (0.40-1.00); Glucose, Blood 107.0 mg/dL (70-99); Potassium, Blood 4.6 mmol/L (3.5-5.5); Sodium, Blood 133.0 mmol/L (136-145)
== END | disposition home or self-care (01) ==
LOC: LAB 07:51 → LAB SHORT 07:51
PROVIDERS: Internal Medicine Cardiovascular Disease
DX: I50.9 Heart failure, unspecified (principal)
CPT/HCPCS: 36415; 80048